=== PATIENT | male | born 2000 | race Caucasian/White ===

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

== ENCOUNTER 2018-08-26 11:53 | Emergency (ER) | payer OTHER ==
[~2018-08-26] VITALS: Ht 170.2 cm; Wt 89.4 kg
[2018-08-26 11:58] VITALS: BP 158/84; PULSE 95; RESP 18; Ht 170.2 cm; Wt 89.4 kg
[2018-08-26] MEDS ORDERED: POLY10DR19 LEFT EYE (12:53)
[2018-08-26] MEDS ORDERED: DEXT15DR5 OP (12:53)
[2018-08-26] MEDS ORDERED: ACET500T98 PO (12:55)
--- NOTE | 2018-08-26 13:01 | ERD ---
ER Documentation Chief Complaint Chief Complaint left eye red, itchy and burning x1 day HPI 17-year-old male presents for left eye redness times 1 day. He states he has sharp pain, rated 5 out of 10, constant pain and irritation. There is associated watery and pus discharge. He states his vision is ok. No pain with eye movement. Denies history of allergies. No treatments tried at home. Denies foreign body sensation, denies photophobia. Denies fevers, chest pain, shortness of breath. Denies cough, runny nose. ROS All systems reviewed and are negative except as per history of present illness. Medications Home Meds Active Scripts Acetaminophen (Tylenol) 500 Mg Tab, 500 MG PO Q4H PRN for PAIN, #30 TAB Prov:NATHAN SALES 08/26/18 Dextran 70/Hypromellose (ARTIFICIAL TEARS EYE DROPS) 15 Ml Drops, 15 ML OP TID for conjunctivitis for 7 Days, #1 BOTTLE Prov:SALESNATHAN 08/26/18 Polymyxin B Sulfate-TMP* (Polymyxin B-TMP Eye Drops*) 10 Ml Drops, 1 DROP LEFT EYE QID for conjuncivitis for 7 Days, #1 BOTTLE Prov:NATHAN SALES 08/26/18 Ibuprofen* (Motrin*) 600 Mg Tab, 600 MG PO Q6H PRN for PAIN AND OR ELEVATED TEMP, #30 TAB Prov:VIKAS GRESHAM NP 04/16/17 Ibuprofen* (Motrin*) 600 Mg Tab, 600 MG PO Q6, #20 TAB Prov:REHANA ASTORGA MD 01/24/15 Allergies Allergies: Coded Allergies: No Known Allergy (Unverified , 04/07/15) PMhx/Soc Hx Alcohol Use: No Hx Substance Use: Yes (MARIJUANA) Hx Tobacco Use: No Smoking Status: Never smoker Physical Exam Vitals Vital Signs Date Temp Pulse Resp B/P (MAP) Pulse Ox O2 O2 Flow FiO2 Time Delivery Rate 08/26/18 97.8 95 18 158/84 99 11:58 (108) Physical Exam Const: No acute distress Head: Atraumatic Eyes: Left eye conjunctival injection is noted, EOMI, PERRL, no pain with eye movement, vision 20/20 bilaterally by Snellen eye chart at 6 feet. ENT: Normal External Ears, Nose and Mouth. Neck: Full range of motion. No meningismus. Resp: Clear to auscultation bilaterally Cardio: Regular rate and rhythm, no murmurs Skin: No petechiae or rashes Ext: No cyanosis, or edema Neur: Awake and alert Psych: Normal Mood and Affect Procedures/MDM Medical Decision Making: Differential diagnosis includes but not limited to bacterial conjunctivitis, viral conjunctivitis, allergic conjunctivitis, iritis, uveitis Patient appeared well on physical exam. Left eye injections noted consistent with a conjunctivitis. Given history of pus drainage there is possibility of bacterial conjunctivitis. Prescription(s): Patient given prescription for supportive medication(s) and Polytrim eyedrop. Patient advised to follow up with PCP in 1-2 days. Patient advised to return to ED for new or worsening symptoms. Patient stable on discharge from the ED. Disclaimer: Inadvertent spelling and grammatical errors are likely due to EHR/dictation software use and do not reflect on the overall quality of patient care. Also, please note that the electronic time recorded on this note does not necessarily reflect the actual time of the patient encounter. Departure Diagnosis: Primary Impression: Conjunctivitis, left eye Conjunctivitis type: unspecified Qualified Codes: H10.9 - Unspecified conjunctivitis Condition: Fair Patient Instructions: Conjunctivitis Caused by Infection Additional Instructions: Call your primary care doctor TOMORROW for an appointment during the next 1-2 days.See the doctor sooner or return here if your condition worsens before your appointment time. NATHAN SALES DO Aug 26, 2018 13:01
== END 2018-08-26 13:07 | disposition home or self-care (01) ==
LOC: FTE 11:53
DX: H10.9 Unspecified conjunctivitis (principal)
CPT/HCPCS: 99283

== ENCOUNTER 2018-10-17 12:18 | Emergency (ER) | payer SELFPAY ==
[~2018-10-17] VITALS: Ht 185.4 cm; Wt 93.0 kg
[~2018-10-17 12:18] MED LIST changes: +ACET500T98 PO; +DEXT15DR5 OP; +POLY10DR19 LEFT EYE
[2018-10-17 12:29] VITALS: BP 134/66; PULSE 60; RESP 19; Ht 185.4 cm; Wt 93.0 kg
== END 2018-10-17 13:02 | disposition left against medical advice (07) ==
LOC: FTE 12:18
DX: Z53.21 Procedure and treatment not carried out due to patient leaving prior to being seen by health care provider (principal)

== ENCOUNTER 2018-12-17 07:10 | Emergency (ER) | payer SELFPAY ==
[~2018-12-17] VITALS: Ht 185.4 cm; Wt 88.8 kg
[~2018-12-17 07:10] MED LIST changes: +BEN25 PO; +MED4DP PO
[2018-12-17 07:18] VITALS: BP 124/78; PULSE 55; RESP 18; Ht 185.4 cm; Wt 88.8 kg
[2018-12-17] MEDS ORDERED: DIPHENHYDRAMINE 25 MG CAP PO ONE (08:00)
[2018-12-17] MEDS ORDERED: FAMOTIDINE 20 MG TAB PO ONE (08:00)
[2018-12-17] MEDS ORDERED: DEXAMETHASONE 10 MG/ML 1 ML INJ IM ONE (08:00)
--- NOTE | 2018-12-17 09:49 | ERD ---
ER Documentation Chief Complaint Chief Complaint generalize itchy bumps on body since last night HPI 18-year-old male presenting with itchy rash all over her abdomen and arms. Patient stated it started this morning around 5 AM. He denies any facial swelling or troubles breathing. Has not taken medications for his symptoms. Denies medical problems. NKDA. Surgical history denies. Social history smokes marijuana weekly. ROS All systems reviewed and are negative except as per history of present illness. Medications Home Meds Active Scripts Methylprednisolone* (Medrol* DOSE PACK) 4 Mg/Dose-Pack Tab.ds.pk, 4 MG PO . DIRECTED, #1 PACKET Prov:JONATHAN HART PA-C 12/17/18 Diphenhydramine Hcl* (Benadryl*) 25 Mg Cap, 25 MG PO Q6, #30 CAP Prov:JONATHAN HART PA-C 12/17/18 Acetaminophen (Tylenol) 500 Mg Tab, 500 MG PO Q4H PRN for PAIN, #30 TAB Prov:NATHAN SALES DO 08/26/18 Dextran 70/Hypromellose (ARTIFICIAL TEARS EYE DROPS) 15 Ml Drops, 15 ML OP TID for conjunctivitis for 7 Days, #1 BOTTLE Prov:NATHAN SALES DO 08/26/18 Polymyxin B Sulfate-TMP* (Polymyxin B-TMP Eye Drops*) 10 Ml Drops, 1 DROP LEFT EYE QID for conjuncivitis for 7 Days, #1 BOTTLE Prov:NATHAN SALES DO 08/26/18 Ibuprofen* (Motrin*) 600 Mg Tab, 600 MG PO Q6H PRN for PAIN AND OR ELEVATED TEMP, #30 TAB Prov:VIKAS GRESHAM NP 04/16/17 Ibuprofen* (Motrin*) 600 Mg Tab, 600 MG PO Q6, #20 TAB Prov:REHANA ASTORGA MD 01/24/15 Allergies Allergies: Coded Allergies: No Known Allergy (Unverified , 04/07/15) PMhx/Soc Medical and Surgical Hx: pt denies Medical Hx, pt denies Surgical Hx Hx Alcohol Use: No Hx Substance Use: Yes (MARIJUANA) Hx Tobacco Use: No Smoking Status: Never smoker FmHx Family History: No diabetes, No coronary disease, No other Physical Exam Vitals Vital Signs Date Temp Pulse Resp B/P (MAP) Pulse Ox O2 O2 Flow FiO2 Time Delivery Rate 12/17/18 97.4 55 18 124/78 100 07:18 (93) Physical Exam GENERAL: The patient is well-appearing, well-nourished, in no acute distress HEENT: Atraumatic. Conjunctivae are pink. Pupils equal, round, and reactive to light. There is no scleral icterus. Tympanic membranes clear bilaterally. Oropharynx clear. CHEST: Clear to auscultation bilaterally. There are no rales, wheezes or rhonchi. HEART: Regular rate and rhythm. No murmurs, clicks, rubs or gallops. SKIN: Noted to torso and arms. No vesicles or pustules. Results 24 hrs Current Medications Medications Dose Sig/Helen Start Time Status Last (Trade) Ordered Route PRN Stop Time Admin Dose Reason Admin 25 mg ONCE ONCE 12/17/18 DC 12/17/18 Diphenhydrami PO 08:00 07:51 ne HCl 12/17/18 08:01 (Benadryl) 10 mg ONCE ONCE 12/17/18 DC 12/17/18 Dexamethasone IM 08:00 07:51 (Decadron) 12/17/18 08:01 Famotidine 20 mg ONCE ONCE 12/17/18 DC 12/17/18 (Pepcid) PO 08:00 07:51 12/17/18 08:01 Procedures/MDM ER course: Benadryl and Decadron given in ED. MDM: 18-year-old male presenting with rash. I have low suspicion for life- threatening rash and patient has findings consistent with urticaria. I have low suspicion for anaphylaxis. Patient is treated symptomatically and recommended to watch what he is eating and ingesting as is unknown cause. Patient is told symptoms change or worsen to return immediately to the ER. All questions answered at discharge Departure Diagnosis: Primary Impression: Hives Condition: Stable Patient Instructions: Hives Referrals: COMMUNITY CLINICS YOU HAVE RECEIVED A MEDICAL SCREENING EXAM AND THE RESULTS INDICATE THAT YOU DO NOT HAVE A CONDITION THAT REQUIRES URGENT TREATMENT IN THE EMERGENCY DEPARTMENT. FURTHER EVALUATION AND TREATMENT OF YOUR CONDITION CAN WAIT UNTIL YOU ARE SEEN IN YOUR DOCTORS OFFICE WITHIN THE NEXT 1-2 DAYS. IT IS YOUR RESPONSIBILITY TO MAKE AN APPOINTMENT FOR FOLOW-UP CARE. IF YOU HAVE A PRIMARY DOCTOR --you should call your primary doctor and schedule an appointment IF YOU DO NOT HAVE A PRIMARY DOCTOR YOU CAN CALL OUR PHYSICIAN REFERRAL HOTLINE AT IF YOU CAN NOT AFFORD TO SEE A PHYSICIAN YOU CAN CHOSE FROM THE FOLLOWING [facility] [address] [facility] [address] [facility] [address] [facility] [address] [facility] [facility] [facility] [address] [facility]. [facility] [address] Additional Instructions: FOLLOW UP WITH YOUR PRIMARY CARE PHYSICIAN TOMORROW.Return to this facility if you are not improving as expected. JONATHAN HART PA-C Dec 17, 2018 09:49
== END 2018-12-17 08:11 | disposition home or self-care (01) ==
LOC: FTE 07:10
DX: L50.9 Urticaria, unspecified (principal)
CPT/HCPCS: 96372; J1100